=== PATIENT | female | born 1970 | race American Indian/Alaskan Native ===

== ENCOUNTER → 2016-11-23 | Outpatient (CLI) | payer BC ==
[~2016-11-23] MED LIST: ACET-1311 PO; FOLI1TAB7 PO; IBUP-1050 PO; LEVO1TAB PO; METF-382 PO; SIMV40TA4 PO; calcium
[2016-11-23 16:08] LABS: THYROID STIMULATING HORMONE 0.677 uIu/ml (0.300-4.500)
== END | disposition home or self-care (01) ==
LOC: C.LAB 15:08
PROVIDERS: ATTEND Internal Medicine Endocrinology, Diabetes & Metabolism
DX: C73 Malignant neoplasm of thyroid gland (principal); E03.9 Hypothyroidism, unspecified; E28.2 Polycystic ovarian syndrome